=== PATIENT | male | born 1945 | race Caucasian/White ===

== ENCOUNTER 2017-04-21 07:59 | Day surgery (SDC) | payer MEDICARE, BC ==
[~2017-04-21 07:59] MED LIST: BUPIVACAINE HCL 0.75% INJ/PF (7.5 MG/1 ML) 10 ML SDV OD PRN; KETOROLAC TROMETHAMINE 0.45% 4 DROP/0.4 ML DROPERETTE OD PRN; LIDOCAINE 4% INJ/PF (40 MG/ML) 5 ML AMPUL OD PRN
[2017-04-21] MEDS ORDERED: EPINEPHRINE INJ/PF 1 MG/1 ML AMPULE ONE (08:13)
[2017-04-21] MEDS ORDERED: LIDOCAINE 1% INJ-PF (10 MG/ML) 30 ML SDV ONE (08:13)
[2017-04-21] MEDS ORDERED: CHONDR SU A NA/HYALUR INTRAOC KIT (SURGICARE) ONE (08:14)
[2017-04-21] MEDS: BESIFLOXACIN HCL 0.6% OPH SUSP 5 ML BOTTLE OD PRN ×4 (08:45→10:03)
[2017-04-21] MEDS: CYCLOPENTOLATE 0.2%/PHENYLEPHRINE 1% OPH SOLN 2 ML OD PRN ×3 (08:45→09:05)
[2017-04-21] MEDS: TROPICAMIDE 1% OPH SOLN 3 ML OD PRN ×3 (08:45→09:05)
[2017-04-21] MEDS: TETRACAINE HCL 0.5% OPH SOLN 0.6 ML DROPERETTE OD PRN ×2 (08:46→09:05)
[2017-04-21] MEDS ORDERED: MIDAZOLAM 2 MG/2 ML INJ ONE (09:04)
[2017-04-21] MEDS ORDERED: FENTANYL CITRATE INJ/PF 100 MCG/2 ML AMPUL ONE (09:04)
--- NOTE | 2017-04-21 10:24 | [facility] OPERATIVE REPORT E ---
[facility] Operative Report NAME: SAMIR RODRIGUEZ AGE: 71Y DATE OF SURGERY: 04/21/2017 ROOM: PREOPERATIVE DIAGNOSIS: Cataract, right eye. POSTOPERATIVE DIAGNOSIS: Cataract, right eye. PROCEDURE PERFORMED: Cataract extraction with Toric intraocular lens implant, right eye. SURGEON: Divina Miranda MD ANESTHESIA: Topical with MAC. INDICATIONS FOR SURGERY: Difficulty seeing captions on TV. Best corrected visual acuity 20/30. PROCEDURE: The patient was brought to the operating room and placed on the operative table. Following tetracaine drops, topical anesthesia was administered. This consisted of instrument wipe pledgets soaked in a solution of 4% Xylocaine mixed with 0.75% Marcaine in a 1:2 ratio. A 2 x 1 cm pledget was placed in the superior fornix. A 1 x 1 cm pledget was placed in the inferior fornix. The eye was patched shut for 5 minutes. The patch was removed. The eye was sterilely prepped and draped in the usual manner. Lid speculum was placed in the eye. The pledgets were removed. 4-0 black silk sutures were placed around the superior and the inferior rectus muscles to be used as traction. A conjunctival peritomy was made at the 10 o'clock position. Hemostasis was obtained with bipolar cautery. A posterior limbal groove was created using a crescent knife and dissected anteriorly towards the cornea. A sharp point blade was used to create a paracentesis site at the 2 o'clock position. A 2.4 mm keratome was used to enter the anterior chamber through the groove. Viscoelastic was injected into the anterior chamber. An anterior capsulotomy was performed using Utrata forceps in a capsulorrhexis fashion. Hydrodissection and hydrodelineation were performed. Phacoemulsification was performed in zpesqv-dki-gcjpiay technique. A total of 8.63 CDE phaco time was used. Following this, the I/A unit was used to remove residual cortex. Viscoelastic was injected into the capsular bag. Intraocular lens model SN6AT3, 12.5 diopters, serial number [id number] was placed in the capsular bag. The I/A unit was used to remove residual viscoelastic. The wound was seen to be watertight under high and low pressure, and no sutures were placed. The intraocular lens was well centered. The pressure was adjusted in the eye to normal pressure. The 4-0 black silk sutures and lid speculum were removed. The eye was shielded after Besivance drops were placed. The patient tolerated the procedure well and was sent to the recovery room in good condition. Prior to the surgery, the patient was placed in the seated position. The 0, 270, and 180-degree axis on the eye was marked using a marking level. Prior to placing the lens implant, the previously marked sites were used as a reference and the 177-degree axis was marked. Lens was centered at the 177-degree axis. DICTATING PHYSICIAN: DIVINA MIRANDA M.D. [id number] PHY#: [id number] ID: [id number] JOB#: [id number] ACCT: [id number] cc:DIVINA MIRANDA M.D. >
--- NOTE | 2017-04-21 10:29 | [facility] DISCHARGE SUMMARY E ---
[facility] Discharge Summary NAME: SAMIR RODRIGUEZ AGE: 71Y ADMITTED: 04/21/2017 DISCHARGED: 04/21/2017 PREOPERATIVE DIAGNOSIS: Cataract, right eye. POSTOPERATIVE DIAGNOSIS: Cataract, right eye. HOSPITAL COURSE: The patient is a 71-year-old gentleman who underwent uneventful cataract extraction with Toric intraocular lens implant, right eye, on 04/21/2017. He will be discharged to home. He was instructed to resume preoperative medications, take Tylenol as needed for discomfort, to keep his eye shielded, to use Besivance, Durezol, and Ilevro at 3 p.m. and 8 p.m., and to followup in my office in 1 day. DICTATING PHYSICIAN: LETICIA MIRANDA M.D. [id number] [id number] PHY#: [id number] ID: [id number] JOB#: [id number] ACCT: [id number] cc:LETICIA MIRANDA M.D. >
== END 2017-04-21 10:45 | disposition home or self-care (01) ==
LOC: SC 07:59
PROVIDERS: ATTEND Ophthalmology
PROC: 08RJ3JZ Replacement of Right Lens with Synthetic Substitute, Percutaneous Approach (ICD-10-PCS; principal; 2017-04-21 09:30)
DX: H25.811 Combined forms of age-related cataract, right eye (principal); K21.9 Gastro-esophageal reflux disease without esophagitis; I10 Essential (primary) hypertension; I25.2 Old myocardial infarction; Z88.8 Allergy status to other drugs, medicaments and biological substances; Z79.899 Other long term (current) drug therapy
CPT/HCPCS: 66984; V2787; J2250; J3490 ×4; A9270; J0171; J3010; 142

== ENCOUNTER 2017-05-12 07:54 | Day surgery (SDC) | payer MEDICARE, BC ==
[~2017-05-12 07:54] MED LIST changes: -BUPIVACAINE HCL 0.75% INJ/PF (7.5 MG/1 ML) 10 ML SDV OD PRN; +BUPIVACAINE HCL 0.75% INJ/PF (7.5 MG/1 ML) 10 ML SDV OS PRN; -KETOROLAC TROMETHAMINE 0.45% 4 DROP/0.4 ML DROPERETTE OD PRN; +KETOROLAC TROMETHAMINE 0.45% 4 DROP/0.4 ML DROPERETTE OS PRN; -LIDOCAINE 4% INJ/PF (40 MG/ML) 5 ML AMPUL OD PRN; +LIDOCAINE 4% INJ/PF (40 MG/ML) 5 ML AMPUL OS PRN
[2017-05-12] MEDS ORDERED: EPINEPHRINE INJ/PF 1 MG/1 ML AMPULE ONE (07:59)
[2017-05-12] MEDS ORDERED: CHONDR SU A NA/HYALUR INTRAOC KIT (SURGICARE) ONE (07:59)
[2017-05-12] MEDS ORDERED: LIDOCAINE 1% INJ-PF (10 MG/ML) 30 ML SDV ONE (07:59)
[2017-05-12] MEDS: CYCLOPENTOLATE 0.2%/PHENYLEPHRINE 1% OPH SOLN 2 ML OS PRN ×3 (08:38→08:59)
[2017-05-12] MEDS: TROPICAMIDE 1% OPH SOLN 3 ML OS PRN ×3 (08:38→08:59)
[2017-05-12] MEDS: TETRACAINE HCL 0.5% OPH SOLN 0.6 ML DROPERETTE OS PRN ×2 (08:38→09:17)
[2017-05-12] MEDS: BESIFLOXACIN HCL 0.6% OPH SUSP 5 ML BOTTLE OS PRN ×4 (08:39→09:56)
[2017-05-12] MEDS ORDERED: FENTANYL CITRATE INJ/PF 100 MCG/2 ML AMPUL ONE (09:15)
[2017-05-12] MEDS ORDERED: MIDAZOLAM 2 MG/2 ML INJ ONE (09:15)
--- NOTE | 2017-05-12 16:13 | [facility] OPERATIVE REPORT E ---
[facility] Operative Report NAME: SAMIR RODRIGUEZ AGE: 71Y DATE OF SURGERY: 05/12/2017 ROOM: PREOPERATIVE DIAGNOSIS: CATARACT, LEFT EYE. POSTOPERATIVE DIAGNOSIS: CATARACT, LEFT EYE. PROCEDURE PERFORMED: Phacoemulsification with toric intraocular lens implant, left eye. SURGEON: Divina Miranda MD ANESTHESIA: Topical plus intraocular lidocaine. PROCEDURE: In the preoperative holding area, topical anesthesia was administered consisting of lidocaine drops. Patient was brought to the operating room and placed in the seated position. The 0, 180 and 270 degree axis of the eye was marked using a marking level. Patient was placed in reclining position, and topical anesthesia was administered. This consisted of instrument wipe pledgets soaked in a solution of 4% lidocaine. A 2 x 1 cm pledget was placed in the superior fornix. A 1 x 1 cm pledget was placed in the inferior fornix. The eye was patched shut for 5 minutes. The patch and pledgets were removed. The eye was sterilely prepped and draped in the usual manner. Lid speculum was placed in the eye. Vicryl 4-0 sutures were placed around the superior and inferior rectus muscles to be used for traction. The conjunctival peritomy was made at the 135-degree axis. Hemostasis was achieved with bipolar cautery. Posterior limbal groove was created using a crescent knife and dissected anteriorly toward the cornea. A sharp-point blade was used to create a paracentesis site at the 2 o'clock position. A 2.4-mm keratome was used to enter the anterior chamber through the groove. Viscoelastic was injected in the anterior chamber. An anterior capsulotomy was performed using Utrata forceps in a capsulorrhexis fashion. Hydrodissection and hydrodelineation were performed. Phacoemulsification was performed in a rntwpr-ytk-aoelead technique. A total of 6.36 CDE of phaco time was used. Following this, the I/A unit was used to remove residual cortex. Viscoelastic was injected in the capsular bag. The 1-degree axis was marked on the eye. Intraocular lens model SN6AT8, 60.0 diopters, serial number [id number], was placed in the eye, rotated within 10 degrees of final axis. The I/A unit was used to remove residual viscoelastic. The lens was rotated to 1-degree axis and centered nicely. It was centered at the 180-degree axis. The wound was seen to be watertight under high and low pressures, and no sutures were placed. The 4-0 black silk sutures and lid speculum were removed. The eye was shielded after Besivance drops were placed. The patient tolerated procedure well and was sent to recovery room in good condition. DICTATING PHYSICIAN: DIVINA MIRANDA M.D. [id number] [id number] PHY#: [id number] ID: [id number] JOB#: [id number] ACCT: [id number] cc:DIVINA MIRANDA M.D. >
--- NOTE | 2017-05-12 16:14 | [facility] DISCHARGE SUMMARY E ---
[facility] Discharge Summary NAME: SAMIR RODRIGUEZ AGE: 71Y ADMITTED: 05/12/2017 DISCHARGED: 05/12/2017 HOSPITAL COURSE: The patient is a 71-year-old gentleman who underwent uneventful cataract extraction with toric intraocular lens implant, left eye, on 05/12/2017. He will be discharged to home. DISCHARGE INSTRUCTIONS: He is instructed to resume preoperative medications; to take Tylenol as needed for discomfort; to keep his eye shielded; to use Durezol, Ilevro, Besivance and Combigan at 3:00 p.m. and 8:00 p.m.; and to follow up in my office in 1 day. DICTATING PHYSICIAN: LETICIA MIRANDA M.D. [id number] [id number] PHY#: [id number] ID: [id number] JOB#: [id number] ACCT: [id number] cc:LETICIA MIRANDA M.D. >
== END 2017-05-12 10:40 | disposition home or self-care (01) ==
LOC: SC 07:54
PROVIDERS: ATTEND Ophthalmology
PROC: 08RJ3JZ Replacement of Right Lens with Synthetic Substitute, Percutaneous Approach (ICD-10-PCS; principal; 2017-05-12 09:30)
DX: H25.812 Combined forms of age-related cataract, left eye (principal); Z96.1 Presence of intraocular lens; H40.023 Open angle with borderline findings, high risk, bilateral; I10 Essential (primary) hypertension; K21.9 Gastro-esophageal reflux disease without esophagitis; Z79.899 Other long term (current) drug therapy; Z79.82 Long term (current) use of aspirin
CPT/HCPCS: 66984; J2250; J3490 ×4; A9270; J0171; J3010; 142

== ENCOUNTER 2017-05-26 11:42 | Day surgery (SDC) | payer MEDICARE, BC ==
[2017-05-26] MEDS ORDERED: MIDAZOLAM 2 MG/2 ML INJ ONE (11:47)
[2017-05-26] MEDS ORDERED: ONDANSETRON HCL INJ/PF 4 MG/2 ML SDV ONE (11:47)
[2017-05-26] MEDS ORDERED: FENTANYL CITRATE INJ/PF 100 MCG/2 ML AMPUL ONE (11:47)
[2017-05-26] MEDS: TETRACAINE HCL 0.5% OPH SOLN 0.6 ML DROPERETTE OS PRN ×2 (12:26→13:05)
[2017-05-26] MEDS: CYCLOPENTOLATE 0.2%/PHENYLEPHRINE 1% OPH SOLN 2 ML OS PRN ×3 (12:27→12:39)
[2017-05-26] MEDS: TROPICAMIDE 1% OPH SOLN 3 ML OS PRN ×3 (12:27→12:39)
[2017-05-26] MEDS: BESIFLOXACIN HCL 0.6% OPH SUSP 5 ML BOTTLE OS PRN ×4 (12:27→13:40)
[2017-05-26] MEDS ORDERED: LIDOCAINE 2% INJ-PF (20 MG/ML) 10 ML AMPUL ONE (12:44)
[2017-05-26] MEDS ORDERED: EPINEPHRINE INJ/PF 1 MG/1 ML AMPULE ONE (12:46)
[2017-05-26] MEDS ORDERED: CHONDR SU A NA/HYALUR INTRAOC KIT (SURGICARE) ONE (12:46)
[2017-05-26] MEDS ORDERED: LIDOCAINE 1% INJ-PF (10 MG/ML) 30 ML SDV ONE (13:27)
--- NOTE | 2017-05-26 13:59 | [facility] OPERATIVE REPORT E ---
[facility] Operative Report NAME: SAMIR RODRIGUEZ AGE: 71Y DATE OF SURGERY: 05/26/2017 ROOM: PREOPERATIVE DIAGNOSIS: MALPOSITIONED TORIC INTRAOCULAR LENS IMPLANT, LEFT EYE. POSTOPERATIVE DIAGNOSIS: MALPOSITIONED TORIC INTRAOCULAR LENS IMPLANT, LEFT EYE. OPERATION: Repositioning of toric intraocular lens implant, left eye. SURGEON: LETICIA MIRANDA M.D. ANESTHESIA: Topical with MAC. PROCEDURE: Patient brought to the operating room, placed in the seated position. The 0, 270- and 180-degree axes were marked on the eye. The eye was sterilely prepped and draped in the usual manner. Lid speculum was placed in the eye. Preoperatively, instrument wipe pledgets had been soaked in a solution of 2% Xylocaine with 0.75% Marcaine, and strips were placed underneath both lids. These were removed. A lid speculum was inserted. Using a circular marker, the 180-degree axis was marked on the eye. The current lens position was approximately 15 degrees. Viscoat cannula was inserted through the previous cataract incision at 60 degrees, and Viscoat was placed in the anterior chamber. Provisc was placed underneath the Viscoat, and the intraocular lens was loosened using the Provisc. It was then rotated to the 180-degree axis that had been previously marked. The I/A unit was then used to remove residual viscoelastic. The wound was rehydrated and seemed to be watertight, and the eye intraocular pressure was normalized. The 4-0 black silk sutures that had been previously placed were removed as well as the lid speculum. Besivance drops were placed in the eye. Patient tolerated procedure well, was sent to recovery room in good condition. DICTATING PHYSICIAN: LETICIA MIRANDA M.D. [id number] [id number] PHY#: [id number] ID: [id number] JOB#: [id number] ACCT: [id number] cc:LETICIA MIRANDA M.D. >
--- NOTE | 2017-05-26 14:03 | [facility] DISCHARGE SUMMARY E ---
[facility] Discharge Summary NAME: SAMIR RODRIGUEZ AGE: 71Y ADMITTED: 05/26/2017 DISCHARGED: 05/27/2017 HOSPITAL COURSE: The patient is a 71-year-old gentleman who underwent uneventful lens repositioning in the left eye on 05/26/2017. He will be discharged to home. He is instructed to resume preoperative medications; to take Tylenol as needed for discomfort; to keep his eye shielded; to use Besivance, Durezol, Ilevro and Combigan at 3:00 p.m. and 8:00 p.m.; and to follow up in my office in 1 day. DICTATING PHYSICIAN: LETICIA MIRANDA M.D. [id number] [id number] PHY#: [id number] ID: [id number] JOB#: [id number] ACCT: [id number] cc:LETICIA MIRANDA M.D. >
== END 2017-05-26 14:35 | disposition home or self-care (01) ==
LOC: SC 11:42
PROVIDERS: ATTEND Ophthalmology
PROC: 08SK3ZZ Reposition Left Lens, Percutaneous Approach (ICD-10-PCS; principal; 2017-05-26 13:30)
DX: T85.22XA Displacement of intraocular lens, initial encounter (principal); H40.023 Open angle with borderline findings, high risk, bilateral; Z96.1 Presence of intraocular lens; I10 Essential (primary) hypertension; I51.9 Heart disease, unspecified; K21.9 Gastro-esophageal reflux disease without esophagitis; E78.00 Pure hypercholesterolemia, unspecified; Z79.899 Other long term (current) drug therapy; Z88.8 Allergy status to other drugs, medicaments and biological substances; Z87.891 Personal history of nicotine dependence; Z79.82 Long term (current) use of aspirin; Z85.820 Personal history of malignant melanoma of skin
CPT/HCPCS: 66825; J2250; J3490 ×5; A9270; J0171; J3010; J2405; 142

== ENCOUNTER → 2020-04-13 | Outpatient (CLI) | payer MEDICARE, BC ==
[~2020-04-13] MED LIST changes: -BUPIVACAINE HCL 0.75% INJ/PF (7.5 MG/1 ML) 10 ML SDV OS PRN; +COVID-19 VACCINE (PFIZER)/PF 30 MCG/0.3 ML VIAL IM ONE; +EPINEPHRINE INJ/PF 1 MG/1 ML AMPULE IM PRN; -KETOROLAC TROMETHAMINE 0.45% 4 DROP/0.4 ML DROPERETTE OS PRN; -LIDOCAINE 4% INJ/PF (40 MG/ML) 5 ML AMPUL OS PRN
== END ==
LOC: EMPHEALTH 09:36
PROVIDERS: ATTEND Internal Medicine
DX: Z23 Encounter for immunization (principal)
CPT/HCPCS: 91300